=== PATIENT | male | born 1965 | race Caucasian/White ===

== ENCOUNTER 2017-02-26 10:04 | Observation (INO) | payer BC ==
[2017-02-26] MEDS ORDERED: ASPIRIN 81 MG TABLET, CHEWABLE PO ONE (10:31)
--- NOTE | 2017-02-26 10:38 | ER Document Report ---
ED Medical Screen (RME) - General Chief Complaint: Chest Pain Stated Complaint: CHEST PAIN, DIZZINESS, WEAKNESS Time Seen by Provider: 02/26/17 10:21 Notes: Patient is a 51 year old male presenting to the ED for chest pain and dizziness since 6:30 this morning. Patient's pain started after he finished making his lunch for work. Patient took an Aleve on his way to work. Patient describes his pain as a knot in his chest that is "squeezing." Patient states he walks a lot at work and goes up and down stairs. Patient's pain was somewhat relieved but the "knot" is still present when he stops walking and rests. Patient drank a bottle of water which helped with his nausea. Patient also complains of some shortness of breath but states he is always short of breath from smoking. Patient has a history of hypertension and states he has a family history of heart problems. I have greeted and performed a rapid initial assessment of this patient. A comprehensive ED assessment and evaluation of the patient, analysis of test results and completion of the medical decision making process will be conducted by additional ED providers. - Related Data Allergies/Adverse Reactions: No Known Allergies Allergy (Unverified 02/26/17 10:15) Past Medical History - Social History Cigarette use (# per day): Yes Chew tobacco use (# tins/day): No Frequency of alcohol use: daily 2 beers Drug Abuse: None - Past Medical History Cardiac Medical History: Reports: Hx Hypertension Renal/ Medical History: Denies: Hx Peritoneal Dialysis Physical Exam - Vital signs Vitals: Temp Pulse Resp BP Pulse Ox 97.6 F 73 18 134/79 H 99 02/26/17 10:02/26/17 10:02/26/17 10:02/26/17 10:02/26/17 10:15 - Notes Notes: GENERAL: Alert, interacts well. No acute distress. LUNGS: Clear to auscultation bilaterally, no wheezes, rales, or rhonchi. No respiratory distress. HEART: Regular rate and rhythm. No murmurs, gallops, or rubs. ABDOMEN: Soft, non-tender. Course - Vital Signs Vital signs: Temp Pulse Resp BP Pulse Ox 97.6 F 73 18 134/79 H 99 02/26/17 10:02/26/17 10:02/26/17 10:15 02/26/17 10:15 02/26/17 10:15 - Laboratory Result Diagrams: 02/26/17 10:47 02/26/17 10:47 Laboratory results interpreted by me: 02/26/17 02/26/17 10:47 10:47 RBC 4.17 L Sodium 128.6 L Chloride 95 L Scribe Documentation - Scribe Written by Screrica:: Juan Michelle, 02/26/17 10:38 acting as scribe for :: Peter
[2017-02-26 10:59] LABS: ABSOLUTE EOSINOPHILS # (AUTO) 0.2 10^3/uL (0.0-0.6); ABSOLUTE LYMPHOCYTES (AUTO) 1.7 10^3/uL (0.5-4.7); ABSOLUTE MONOCYTES (AUTO) 0.5 10^3/uL (0.1-1.4); BASOPHILS % (AUTO) 0.7 % (0-2); EOSINOPHILS % (AUTO) 2.6 % (0-6); HEMOGLOBIN 13.7 g/dL (13.5-17.0); HGB HCT DIFFERENCE 2.1; LYMPHOCYTES % (AUTO) 23.3 % (13-45); MEAN CORPUSCULAR HEMOGLOBIN 32.9 pg (27.0-33.4); MEAN CORPUSCULAR HGB CONC 35.1 g/dL (32.0-36.0); MEAN CORPUSCULAR VOLUME 94 fl (80-97); MONOCYTES % (AUTO) 6.9 % (3-13); RED BLOOD COUNT 4.17 10^6/uL (4.35-5.55); SEGMENTED NEUTROPHILS % (AUTO) 66.5 % (42-78); WHITE BLOOD COUNT 7.5 10^3/uL (4.0-10.5)
[2017-02-26] MEDS ORDERED: ACETAMINOPHEN 325 MG TABLET PO ONE (11:09)
[2017-02-26] MEDS ORDERED: NITROGLYCERIN 0.4 MG/TAB 25 TAB/BOTTLE SL ONE (11:09)
[2017-02-26 11:25] LABS: ALANINE AMINOTRANSFERASE 37 U/L (21-72); ALKALINE PHOSPHATASE 73 U/L (38-126); ANION GAP 10 (5-19); ASPARTATE AMINO TRANSFERASE 20 U/L (17-59); BILIRUBIN,DIRECT 0.3 mg/dL (0.0-0.4); BILIRUBIN,TOTAL 0.6 mg/dL (0.2-1.3); BLOOD UREA NITROGEN 10 mg/dL (7-20); CALCIUM 9.3 mg/dL (8.4-10.2); CARBON DIOXIDE 24 mmol/L (22-30); CHLORIDE 95 mmol/L (98-107); CREATINE KINASE 104 U/L (55-170); CREATININE RESULT 0.73 mg/dL (0.52-1.25); GLUCOSE 103 mg/dL (75-110); SODIUM 128.6 mmol/L (137-145); TOTAL PROTEIN 7.1 g/dL (6.3-8.2)
[2017-02-26] MEDS ORDERED: NORMAL SALINE 1000 ML 1,000 ML IV ONE (11:34)
[2017-02-26 11:46] LABS: CREATINE KINASE MB 0.63 ng/mL (<4.55)
[2017-02-26 11:47] LABS: TROPONIN I < 0.012 ng/mL
--- NOTE | 2017-02-26 12:14 | RADIOLOGY REPORT (SQ) ---
EXAM DESCRIPTION: CHEST SINGLE VIEW COMPLETED DATE/TIME: 02/26/2017 11:59 am REASON FOR STUDY: CP COMPARISON: None. EXAM PARAMETERS: NUMBER OF VIEWS: One view. TECHNIQUE: Single frontal radiographic view of the chest acquired. RADIATION DOSE: NA LIMITATIONS: None. FINDINGS: LUNGS AND PLEURA: No opacities, masses or pneumothorax. No pleural effusion. MEDIASTINUM AND HILAR STRUCTURES: No masses. Contour normal. HEART AND VASCULAR STRUCTURES: Heart normal in size. Normal vasculature. BONES: No acute findings. Old ununited fracture of the right clavicle is identified. HARDWARE: None in the chest. OTHER: No other significant finding. IMPRESSION: NO ACUTE RADIOGRAPHIC FINDING IN THE CHEST. TECHNICAL DOCUMENTATION: JOB ID: [id number]
--- NOTE | 2017-02-26 12:44 | ER Document Report ---
ED Cardiac - General Chief Complaint: Chest Pain Stated Complaint: CHEST PAIN, DIZZINESS, WEAKNESS Time Seen by Provider: 02/26/17 10:21 Mode of Arrival: Ambulatory Information source: Patient Notes: Is a 51-year-old male with a history of hypertension who presents to the ER today for chest pain that started at 6:30 AM this morning. Patient states that he was getting ready to leave for work when the pain began. He states that it was in the center of his chest, "like and not being squeezed." He got lightheaded, dizzy, had nausea and shortness of breath but denies any vomiting. He denies any history of heart attack or stroke although he has a strong family history of heart attack and stroke with people in the 50s and 60s age range. He also smokes. - Related Data Allergies/Adverse Reactions: No Known Allergies Allergy (Unverified 02/26/17 10:15) Past Medical History - General Information source: Patient - Social History Smoking Status: Current Every Day Smoker Cigarette use (# per day): Yes Chew tobacco use (# tins/day): No Frequency of alcohol use: daily 2 beers Drug Abuse: None Family History: Reviewed & Not Pertinent Patient has suicidal ideation: No Patient has homicidal ideation: No - Past Medical History Cardiac Medical History: Reports: Hx Hypertension Renal/ Medical History: Denies: Hx Peritoneal Dialysis Review of Systems - Review of Systems Constitutional: No symptoms reported EENT: No symptoms reported Cardiovascular: See HPI Respiratory: See HPI Gastrointestinal: See HPI Genitourinary: No symptoms reported Male Genitourinary: No symptoms reported Musculoskeletal: No symptoms reported Skin: No symptoms reported Hematologic/Lymphatic: No symptoms reported Neurological/Psychological: See HPI Physical Exam - Vital signs Vitals: Temp Pulse Resp BP Pulse Ox 97.6 F 73 18 134/79 H 99 02/26/17 10:15 02/26/17 10:15 02/26/17 10:15 02/26/17 10:15 02/26/17 10:15 - Notes Notes: PHYSICAL EXAMINATION: GENERAL: Well-appearing and in no acute distress. HEAD: Atraumatic, normocephalic. EYES: Pupils equal round and reactive to light, extraocular movements intact, sclera anicteric, conjunctiva are normal. NECK: Normal range of motion, supple without lymphadenopathy LUNGS: CTAB and equal. No wheezes rales or rhonchi. HEART: Nontender to palpation, regular rate and rhythm without murmurs ABDOMEN: Soft, no tenderness. No guarding, no rebound BACK: no vertebral tenderness, normal ROM GI/: no CVA tenderness EXTREMITIES: Normal range of motion, no pitting edema. No cyanosis. NEUROLOGICAL: Cranial nerves grossly intact. Normal sensory/motor exams. PSYCH: Normal mood, normal affect. SKIN: Warm, Dry, normal turgor, no rashes or lesions noted Course - Re-evaluation Re-evalutation: 02/26/17 12:40 Sodium and chloride are low, sodium of 128. Cardiac enzymes are negative, EKG reveals a normal sinus rhythm at a rate of 76 bpm without evidence of ischemia. All of the lab work is unremarkable today. Chest x-ray is normal. Patient does have risk factors and has a good cardiac history. I will attempt to admit him for chest pain rule out at this time. Nitroglycerin did relieve his pain completely. 02/26/17 13:01 Dr. dubon, hospitalist agreed to admit at this time for chest pain rule out. - Vital Signs Vital signs: Temp Pulse Resp BP Pulse Ox 97.5 F 58 L 20 120/75 100 02/26/17 16:09 02/26/17 16:09 02/26/17 16:09 02/26/17 16:09 02/26/17 16:09 - Laboratory Result Diagrams: 02/26/17 10:47 02/26/17 10:47 Laboratory results interpreted by me: 02/26/17 02/26/17 10:47 10:47 RBC 4.17 L Sodium 128.6 L Chloride 95 L Discharge - Discharge Clinical Impression: Chest pain Qualifiers: Chest pain type: unspecified Qualified Code(s): R07.9 - Chest pain, unspecified Condition: Stable Disposition: ADMITTED OBSERVATION Admitting Provider: Hospitalist Unit Admitted: Telemetry
[2017-02-26] MEDS ORDERED: IPRATROPIUM/ALBUTEROL 0.5-2.5 MG/3 ML AMPUL NEB PRN (14:33)
[2017-02-26] MEDS ORDERED: ACETAMINOPHEN 325 MG TABLET PO PRN (14:33)
[2017-02-26] MEDS ORDERED: MORPHINE SULFATE 10 MG/ML INJ IV PRN (14:40)
[2017-02-26] MEDS ORDERED: HYDRALAZINE HCL INJ/PF 20 MG/1 ML SDV IV PRN (14:40)
[2017-02-26] MEDS ORDERED: NITROGLYCERIN 0.4 MG/TAB 25 TAB/BOTTLE SL PRN (14:40)
--- NOTE | 2017-02-26 16:23 | PDOC H&P ---
History of Present Illness Admission Date/PCP: 02/26/17 13:26 TWYLA HE MD History of Present Illness: CHENTE THOMAS JR is a 51 year old white male with a past medical history of tobacco abuse and hypertension who presents to the ED with complaints of chest pain. The patient's chest pain started at work earlier this morning. Describes the pain as a knot in the center of his chest. He also states that at times it feels like a squeezing sensation. Rates his discomfort at a 3 out of 5. He developed this chest discomfort while going up and down the stairs at work. At Rest his pain was a 2/5. Patient admits to palpitations, sweating, and anxiety associated with his symptoms. He also developed nausea without vomiting. He Denies shortness of breath. The pain lasted all morning had has never happened to him before. In the emergency room the patient received nitroglycerin. This alleviated all of his pain. Chest x-ray was done which was negative, EKG was normal, troponins were normal. 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 He has never been diagnosed with any underlying lung condition. 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 During this evaluation, he was told that he had the lungs of a 70-year-old. In addition to this, the patient fell on his front porch yesterday. Fell and hit his tailbone slipping on the front step. In taking 2-4 500 mg Aleve. He has had trouble with taking BC powders in the past and developed reflux symptoms while taking the Aleve. Over the weekend, the patient also to transmission out of his car with the assistance of his father. He does not remember lifting and appropriately but admits that he could have. In terms of his family history, his mother's brother each had a heart attack less than the age of 55 and an aunt less than the age of 65. Currently the patient has no complaints of any further chest discomfort. Past Medical History Cardiac Medical History: Reports: Hypertension Past Surgical History Past Surgical History: Reports: None Social History Smoking Status: Current Every Day Smoker Cigarettes Packs Per Day: 1 Frequency of Alcohol Use: Heavy Amount of Alcoholic Beverages Per Day: 2 beers per night Last Alcohol Use: 02/25/17 Hx Recreational Drug Use: No - History of marijuana and cocaine abuse Hx Prescription Drug Abuse: No Past Social History Note: Began smoking at the age of 13. At Worst he smoked 3 packs per day and is now currently down to 1 pack per day. Admits to drinking in the past as well as use of cocaine and marijuana. For several years - Advance Directive Resuscitation Status: Full Code Family History Family History: CAD Parental Family History Reviewed: Yes Children Family History Reviewed: Yes Sibling(s) Family History Reviewed.: Yes Medication/Allergy Allergies/Adverse Reactions: No Known Allergies Allergy (Unverified 02/26/17 10:15) Review of Systems Review of Systems: The patient admits to tailbone pain and fatigue. The other Pertinent review of systems is as per the HPI. The patient denies blood in the stool, blood in the urine, throwing up blood, coughing up blood, fever, chills, weight loss or weight gain, dysuria Physical Exam Vital Signs: Temp Pulse Resp BP Pulse Ox 97.6 F 73 14 121/80 98 02/26/17 10:15 02/26/17 10:15 02/26/17 14:01 02/26/17 14:01 02/26/17 14:01 Physical exam In general: This is a well-developed well-nourished white male resting in bed currently in no acute distress HEENT: Normocephalic atraumatic, trachea is midline sclera are anicteric dentition is poor Heart: Regular rate and rhythm no murmurs rubs or gallop. Pain was not reproducible on palpation Lungs: Clear auscultation bilaterally with equal rise and fall of the chest Abdomen: Soft nontender nondistended with active bowel sounds Extremities: No Clubbing, cyanosis, or edema. 5 out of 5 strength bilaterally in the upper and lower extremity Neuro: Awake, alert, oriented 3. Cranial nerves II through XII are specifically intact Results Impressions: Chest X-Ray 02/26/17 10:31 IMPRESSION: NO ACUTE RADIOGRAPHIC FINDING IN THE CHEST. Assessment & Plan - Diagnosis (1) Chest pain Qualifiers: Chest pain type: unspecified Qualified Code(s): R07.9 - Chest pain, unspecified Plan: The patient does have CAD risk factors to include smoking, htn and family history. Troponins are negative with a good ekg. No evidence of acute coronary syndrome. Will admit to observation and trend troponins and obtain stress test in the morning. Continue SUNNY. He also had GERD in past with intolerance of NSAIDS. His pain may also be due to muscle strain from his work as a painter and paperhanger apprentice or during the overhaul of his transmission over the weekend. Will continue to monitor. (2) Hypertension Plan: Patient will need to verify home medications. Resume home meds once we know what they are. prns are available (3) Tobacco abuse Plan: Smoking cessation is advised. - Time Time Spent: 50 to 70 Minutes Smoking Cessation Education: 3 to 10 minutes Anticipated discharge: Home Within: within 24 hours, within 36 hours
--- NOTE | 2017-02-26 17:15 | EKG REPORT ---
SEVERITY:- NORMAL ECG - SINUS RHYTHM : Confirmed by: Marychuy Medina MD 26-Feb-2017 17:14:57
[2017-02-26 17:52] LABS: CREATINE KINASE MB 0.66 ng/mL (<4.55)
[2017-02-26 17:55] LABS: TROPONIN I < 0.012 ng/mL
[2017-02-26 23:30] LABS: CREATINE KINASE MB 0.53 ng/mL (<4.55)
[2017-02-26 23:35] LABS: TROPONIN I < 0.012 ng/mL
[2017-02-27 05:21] LABS: ANION GAP 7 (5-19); BLOOD UREA NITROGEN 14 mg/dL (7-20); CALCIUM 9.9 mg/dL (8.4-10.2); CARBON DIOXIDE 26 mmol/L (22-30); CHLORIDE 103 mmol/L (98-107); CREATININE RESULT 0.87 mg/dL (0.52-1.25); GLUCOSE 105 mg/dL (75-110); MAGNESIUM 2.1 mg/dL (1.6-2.3); POTASSIUM 4.7 mmol/L (3.6-5.0); SODIUM 135.5 mmol/L (137-145)
[2017-02-27] MEDS ORDERED: AMINOPHYLLINE INJ/PF 250 MG/10 ML SDV IV ONE (13:11)
[2017-02-27] MEDS ORDERED: REGADENOSON INJ 0.4 MG/5 ML DISP.SYRIN IV ONE (13:11)
--- NOTE | 2017-02-27 15:38 | DRAGON STRESS TEST REPORT ---
LexiScan Nuclear Stress Test using single photon emmision computerized tomography. Indication : Patient with Chest pain and dyspnea. Resting EKG: Sinus rhythm with no significant baseline ST segment changes. Stress EKG: No significant additional EKG changes noted with LexiScan bolus. Reason for termination: Protocol. Procedure report : Baseline heart rate 71 beats per minute with blood pressure of 116/69. Patient had no significant complaints. Heart rate at 2 minutes post bolus 100 with a blood pressure of 147/72. At 3 minutes post bolus heart rate 93 with blood pressure of 138/72. No significant EKG changes were noted. Patient had no significant complaints during the procedure or postprocedure. Conclusions: Normal EKG and hemodynamic response to IV LexiScan. Nuclear data: At rest the patient was given 12.34millicuries of technetium 99 sestamibi injected intravenously. As per protocol rest non gated SPECT images were obtained. Subsequently the patient was given intravenous LexiScan at a dose of 0.4 mg in 5 mL intravenously, followed by flush with normal saline. Immediately post LexiScan bolus, stress dose of 35.2 millicuries of technetium 99 sestamibi was injected intravenously. As per protocol stress gated images were obtained. Nuclear interpretation: Both raw and processed data were used for interpretation. Visual, qualitative, computer-generated quantitative data was used. There was good myocardial uptake of technetium compound. Motion artifact and soft tissue attenuations were noted. These were felt not to be significantly affecting the interpretation. No definitive areas of transient or fixed perfusion defect noted. EKG gated imaging showed LV EF at 54 %. T. I D. ratio was 1.07 . lung heart ratio (0.30) and visually noted to be within normal limits. No significant extracardiac and abnormal radiotracer activities were noted. IMPRESSION: 1. There is no definitive scintigraphic evidence of LexiScan induced myocardial ischemia. 2. There is no definitive scintigraphic evidence of myocardial infarction/scar. 3. EKG gated imaging shows left ventricular ejection fraction of approximately 54% without any definite regional wall motion abnormalities. 4. Inability to exercise by its self can increase cardiovascular event rate. RECOMMENDATIONS: Aggressive risk factor modification, medical therapy. Clinical correlation with echocardiogram of nuclear derived ejection fraction. Patient should be informed that occasionally single vessel disease and/or balanced ischemia could be missed Further assessment and reevaluation may be needed in future if symptoms persists or worsens. Appointment to discuss results. Ky Thayer M.D., MRCP Board certified in cardiovascular diseases, Nuclear cardiology, Echocardiography, Cardiac CT and Cardiac MRI. Ph. [phone] [facility]
[2017-02-27 15:43] VITALS: BP 125/72
--- NOTE | 2017-02-27 17:14 | PDOC DISCHARGE SUMMARY ---
General - Admit/Disc Date/PCP Admission Date/Primary Care Provider: 02/26/17 14:33 TWYLA HE MD Discharge Date: 02/27/17 - Discharge Diagnosis (1) Chest pain Summary: Chest pain has resolved. Patient underwent stress testing which was negative. Possible etiologies for the patient's chest pain includes pleurisy from his extensive smoking, musculoskeletal trauma from changing up to transmission in his car this weekend, acid reflux disease from his month-long use of NSAIDs and BC powders. Patient was cautioned not to continue use of NSAIDs at this point. Can for Nexium was given to him. He was told that if this prescription could not be filled due to insurance purposes to obtain counter Prilosec and to follow -up with his PCP next 4 weeks. Still counseled to stop smoking. Advised to use proper form with lifting at work and when working on his vehicle. (2) Hypertension Summary: Controlled on lisinopril continue as an outpatient. (3) Tobacco abuse Summary: The patient was cautioned to quit smoking - Additional Information Resuscitation Status: Full Code Discharge Diet: Regular Discharge Activity: Activity As Tolerated Home Medications: Lisinopril/Hydrochlorothiazide [Lisinopril-Hctz 10-12.5 mg Tab] 1 tab PO DAILY 02/26/17 Omeprazole 40 mg PO DAILY #30 capsule. 02/27/17 History of Present Illness History of Present Illness: CHENTE THOMAS JR is a 51 year old white male with a past medical history of tobacco abuse and hypertension who presents to the ED with complaints of chest pain. The patient's chest pain started at work earlier this morning. Describes the pain as a knot in the center of his chest. He also states that at times it feels like a squeezing sensation. Rates his discomfort at a 3 out of 5. He developed this chest discomfort while going up and down the stairs at work. At Rest his pain was a 2/5. Patient admits to palpitations, sweating, and anxiety associated with his symptoms. He also developed nausea without vomiting. He Denies shortness of breath. The pain lasted all morning had has never happened to him before. In the emergency room the patient received nitroglycerin. This alleviated all of his pain. Chest x-ray was done which was negative, EKG was normal, troponins were normal. 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 He has never been diagnosed with any underlying lung condition. 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 During this evaluation, he was told that he had the lungs of a 71-year-old. In addition to this, the patient fell on his front porch yesterday. Fell and hit his tailbone slipping on the front step. In taking 2-4 500 mg Aleve. He has had trouble with taking BC powders in the past and developed reflux symptoms while taking the Aleve. Over the weekend, the patient also to transmission out of his car with the assistance of his father. He does not remember lifting and appropriately but admits that he could have. In terms of his family history, his mother's brother each had a heart attack less than the age of 55 and an aunt less than the age of 65. Currently the patient has no complaints of any further chest discomfort. Hospital Course Hospital Course: Patient did well during his time in the observation unit. Stress testing which was negative. He was discharged without further incident. Physical Exam Vital Signs: Temp Pulse Resp BP Pulse Ox 98.2 F 68 12 125/72 100 02/27/17 15:41 02/27/17 15:41 02/27/17 15:41 02/27/17 15:41 02/27/17 15:41 Intake & Output 02/26/17 02/27/17 02/28/17 06:59 06:59 06:59 Intake Total 250 Balance 250 Weight 82.8 kg Physical exam In general: This is a well-developed well-nourished white male resting in bed currently in no acute distress Heart: Regular rate and rhythm no murmurs rubs or gallop. Pain was not reproducible on palpation again. Lungs: Clear auscultation bilaterally with equal rise and fall of the chest Extremities: No Clubbing, cyanosis, or edema. Neuro: Awake, alert, oriented 3. Cranial nerves II through XII are specifically intact Results Laboratory Results: 02/27/17 04:13 02/27/17 02/27/17 04:13 04:13 Sodium 135.5 L Potassium 4.7 Chloride 103 Carbon Dioxide 26 Anion Gap 7 BUN 14 Creatinine 0.87 Est GFR ( Amer) > 60 Est GFR (Non-Af Amer) > 60 Glucose 105 Calcium 9.9 Magnesium 2.1 TSH 1.67 02/26/17 02/26/17 17:08 22:45 CK-MB (CK-2) 0.66 0.53 Troponin I < 0.012 < 0.012 Impressions: Chest X-Ray 02/26/17 10:31 IMPRESSION: NO ACUTE RADIOGRAPHIC FINDING IN THE CHEST.
== END 2017-02-27 17:25 | disposition home or self-care (01) ==
LOC: ER 10:04 → EH 13:26 → UNDOADMOB 13:26 → EH 14:33 → 4N 15:35 → EH 15:35
PROVIDERS: ADMIT Internal Medicine; ATTEND Internal Medicine
PROC: HZ31ZZZ Individual Counseling for Substance Abuse Treatment, Behavioral (ICD-10-PCS; principal; 2017-02-26)
DX: R07.89 Other chest pain (principal); I10 Essential (primary) hypertension; F17.210 Nicotine dependence, cigarettes, uncomplicated; K21.9 Gastro-esophageal reflux disease without esophagitis; R00.2 Palpitations; R61 Generalized hyperhidrosis; F41.9 Anxiety disorder, unspecified; R11.0 Nausea; M53.3 Sacrococcygeal disorders, not elsewhere classified; W10.8XXA Fall (on) (from) other stairs and steps, initial encounter; Y92.008 Other place in unspecified non-institutional (private) residence as the place of occurrence of the external cause; R42 Dizziness and giddiness; R06.02 Shortness of breath; Z87.898 Personal history of other specified conditions; Z79.899 Other long term (current) drug therapy; Z82.49 Family history of ischemic heart disease and other diseases of the circulatory system
CPT/HCPCS: 93005; 99285; 36415 ×2; 82553; 82550; 83735 ×2; 84443; 85025; 80048; 80053; 84484; 93017; 71010; 78452; 93010; 99406; A9500; J2785; J2270; J3490 ×2; J7030; J0280; Q9969; G0378

== ENCOUNTER 2020-08-26 11:16 | Emergency (ER) | payer SELFPAY ==
[2020-08-26 11:25] VITALS: BP 149/86
[2020-08-26] MEDS ORDERED: KETOROLAC TROMETHAMINE 60 MG/2 ML SDV IM ONE (11:38)
--- NOTE | 2020-08-26 11:38 | ER Document Report ---
HPI - HPI Patient complains to provider of: Left Knee pain Time Seen by Provider: 08/26/20 11:32 Pain Level: 3 Context: 54-year-old male past medical history significant for hypertension presents to the emergency room complaining of left knee pain for the past 2 days. Patient states he was walking when he heard a "pop" to his left knee. Did not fall or injure his knee. 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 Denies any previous surgeries to his knee. States has been taking ibuprofen with some relief using ice and elevation with some relief. States swelling has improved but pain has been persistent. States pain has been persistent. Drove self to the emergency room. Did not take any medication for his pain today. Associated Symptoms: None Exacerbated by: Movement, Walking Relieved by: Denies Similar symptoms previously: No Recently seen / treated by doctor: No - ROS Systems Reviewed and Negative: Yes All other systems reviewed and negative - CONSTITUTIONAL Constitutional: DENIES: Fever - NEURO Neurology: DENIES: Weakness - MUSCULOSKELETAL Musculoskeletal: REPORTS: Extremity pain - DERM Skin Color: Normal, [place] Skin Problems: None Past Medical History - General Information source: Patient - Social History Smoking Status: Current Every Day Smoker Frequency of alcohol use: Social Drug Abuse: None Family History: CAD - Past Medical History Cardiac Medical History: Reports: Hx Hypertension Renal/ Medical History: Denies: Hx Peritoneal Dialysis GI Medical History: Reports: Hx Ulcer Vertical Provider Document - CONSTITUTIONAL Agree With Documented VS: Yes Exam Limitations: No Limitations General Appearance: Mild Distress - INFECTION CONTROL TRAVEL OUTSIDE OF THE [place] IN LAST 30 DAYS: No - HEENT HEENT: Atraumatic, Normocephalic - NECK Neck: Normal Inspection, Supple - RESPIRATORY Respiratory: Breath Sounds Normal, No Respiratory Distress - BACK Back: Normal Inspection - MUSCULOSKELETAL/EXTREMETIES Musculoskeletal/Extremeties: Tender - Tenderness on palpation over the left patella. There is painful range of motion with flexion, extension, negative anterior drawer, negative Sugey's, positive Jamshid's, positive posterior draw. No obvious effusion palpated. Negative ballottement.. - NEURO Level of Consciousness: Awake, Alert, Appropriate Motor/Sensory: No Motor Deficit, No Sensory Deficit Notes: Ambulatory with a steady gait. Neurovascularly intact. - DERM Integumentary: Warm, Dry, No Rash Course - Re-evaluation Re-evalutation: 08/26/20 12:04 Patient is resting comfortably with decreased pain. He is neurovascularly intact. Ambulatory with a steady gait. Reviewed x-ray results with patient. Counseled to continue with ice, elevation, Motrin for pain. Outpatient follow- up with orthopedics for further evaluation and treatment. On-call physician wi ll be provided. Patient was given strict return to the emergency room guidelines. Return for any new or worsening symptoms. All questions were answered. Patient verbalized understanding and agrees with plan of care. - Vital Signs Vital signs: Temp Pulse Resp BP Pulse Ox 97.8 F 65 16 149/86 H 100 08/26/20 11:24 08/26/20 11:24 08/26/20 11:24 08/26/20 11:24 08/26/20 11:24 - Diagnostic Test Radiology reviewed: Reports reviewed Discharge - Discharge Clinical Impression: Left knee pain Qualifiers: Chronicity: acute Qualified Code(s): M25.562 - Pain in left knee Condition: Stable Disposition: HOME, SELF-CARE Instructions: Suspected Internal Knee Injury ([facility]), Ice & Elevation ([facility]) Additional Instructions: Rest, ice, elevate your left knee. Motrin as needed for pain. Outpatient follow-up with orthopedics as discussed. Return to the emergency room for any new or worsening symptoms. Referrals: TWYLA HE MD [Primary Care Provider] - Follow up as needed BASSEM BARRIGA DO [ACTIVE STAFF] - Follow up as needed
--- NOTE | 2020-08-26 12:01 | RADIOLOGY REPORT (SQ) ---
EXAM DESCRIPTION: KNEE LEFT 4 VIEW IMAGES COMPLETED DATE/TIME: 08/26/2020 11:52 am REASON FOR STUDY: pain COMPARISON: None. NUMBER OF VIEWS: Four views. TECHNIQUE: AP, lateral, and both oblique radiographic images acquired of the left knee. LIMITATIONS: None. FINDINGS: MINERALIZATION: Normal. BONES: No acute fracture or dislocation. JOINT: No effusion. SOFT TISSUES: No soft tissue swelling. OTHER: No other findings. IMPRESSION: No acute osseous abnormality of the left knee. TECHNICAL DOCUMENTATION: JOB ID: [id number] 2010 [employer]- All Rights Reserved Reading location - IP/workstation name: [email or web address]
== END 2020-08-26 12:10 | disposition home or self-care (01) ==
LOC: ER 11:16
DX: M25.562 Pain in left knee (principal); I10 Essential (primary) hypertension; F17.200 Nicotine dependence, unspecified, uncomplicated
CPT/HCPCS: 99284; 96372; 73564; J1885